=== PATIENT | male | born 1935 | race Caucasian/White ===

== ENCOUNTER → 2020-01-30 | Day surgery (SDC) | payer MEDICARE ==
--- NOTE | 2020-01-26 15:10 | NUR ---
Checked patient's temperature via skin probe: 97.7F. Patient and patient's daughter denies being out of the country or out of the state in the last 14 days. Patient and patient's daughter denies being around anyone who has been out of the country or out of the state in the last 14 days. Patient and patient's daughter denies being around anyone who has been exposed or diagnosed with COVID-19. Patient denies new onset of fever, cough, or shortness of breath in the last 14 days.
[2020-01-26 16:02] LABS: BASOPHILS # (AUTO) 0.1 (0.0-0.1); BASOPHILS % 0.9 % (0.0-1.0); EOSINOPHILS # (AUTO) 0.8 (0.0-0.4); EOSINOPHILS % 9.9 % (0.0-6.0); HEMATOCRIT 41.1 % (38.2-49.6); HEMOGLOBIN 13.9 g/dL (14.0-18.0); LYMPHOCYTES # (AUTO) 2.4 (1.0-3.2); MEAN CORPUSCULAR HEMOGLOBIN 32.6 pg (28-32); MEAN CORPUSCULAR HGB CONC 33.8 g/dL (31-35); MEAN CORPUSCULAR VOLUME 96.3 fL (81-99); MONOCYTES # (AUTO) 0.5 (0.2-0.8); MONOCYTES % 6.2 % (4.4-11.3); NEUTROPHILS # (AUTO) 4.2 (2.1-6.9); NEUTROPHILS % 52.4 % (38.7-80.0); PLATELET COUNT 196 x10e3/uL (140-360); RED BLOOD COUNT 4.27 x10e6/uL (4.3-5.7); RED CELL DISTRIBUTION WIDTH 12.9 % (11.7-14.4)
[2020-01-26 16:12] LABS: INR 0.96; PROTHROMBIN TIME 13.3 seconds (11.9-14.5)
[2020-01-26 16:13] LABS: PARTIAL THROMBOPLASTIN TIME 27.6 seconds (23.8-35.5)
[2020-01-26 16:22] LABS: ALBUMIN/GLOBULIN RATIO 1.4 (0.8-2.0); CALCIUM 9.3 mg/dL (8.4-10.2); CREATININE, SERUM 1.56 mg/dL (0.72-1.25)
--- NOTE | 2020-01-26 16:30 | Diagnostic Imaging Report ---
EXAM: CHEST 2 VIEWS DATE: 01/26/2020 3:30 PM INDICATION: Preoperative evaluation COMPARISON: 03/23/2013 FINDINGS: The trachea is midline. The lungs are symmetrically expanded without evidence for large focal consolidation, pneumothorax, or significant pleural effusion. The cardiomediastinal silhouette and pulmonary vasculature are within normal limits. Partially visualized vascular stent graft noted within the upper abdomen. No acute osseous abnormality is identified. The surrounding soft tissues are unremarkable. IMPRESSION: No acute cardiopulmonary process identified. Signed by: Dr. Rahul Lockhart MD on 01/26/2020 4:26 PM
--- NOTE | 2020-01-27 16:39 | NUR ---
Dr. Sheth notified of creatinine 1.56 and eGFR 43. No new orders at this time.
[2020-01-30] VITALS (10 sets, daily range): BP systolic 133–172; BP diastolic 58–100
[~2020-01-30] VITALS: Ht 179.1 cm; Wt 83.9 kg
[~2020-01-30] MED LIST: ADVAIR 250-501 EACH; ASPIRIN 325 MG TAB ONE; ATORVASTATIN CA20 MG PO; BIVALRIUDIN 250 MG/VIAL VIAL IV ONE; CILOSTAZOL100 MG PO; CLOPIDOGREL BISULFATE 75 MG TAB ONE; COMBIVENT RESPIM4 GM IH; DIGOXIN125 MCG PO; DOXAZOSIN MESYLA8 MG PO; FENOFIBRATE54 MG PO; FENTANYL CITRATE/PF 100MCG/2 ML INJ ONE; GLIMEPIRIDE2 MG PO; HEPARIN SOD (PORCINE) 1000 UNIT/ML 30ML ONE; HEPARIN SOD/SOD CHLORIDE 2,000 ML ONE; HYDROCODONE PO; INDOMETHACIN50 MG PO; IOPAMIDOL 370 MG/ML 200 ML INFUS..BTL INJ ONE; LEVEMIR FL100 UNIT/1 SC; LIDOCAINE HCL 2% LOCAL 20 ML VIAL ONE; MIDAZOLAM HCL 2 MG/2 ML VIAL ONE; MONTELUKAST SOD10 MG PO; NEURONTIN300 MG PO; NEXIUM40 MG PO; NITROGLYCERIN/D5W 200 MCG/ML 250 ML ONE; NOVOLOG100 UNIT/1 SC; SODIUM CHLORIDE 0.9% 1000ML 1,000 ML ONE; SODIUM CHLORIDE 0.9% 50ML 50 ML ONE; VASOTEC10 MG PO; VERAPAMIL ER180 M1 PO; VERAPAMIL HCL 2.5 MG/ML 2 ML VIAL ONE; ZOCOR20 MG PO
--- OUTSIDE RECORDS SUMMARY | 2020-01-30 06:40 | XMS REPORT ---
Author Author [facility] Address Unknown Phone Unavailable Care Team Providers Care Creative Writing Professor Name Role Phone JEREMIAH ARIAS Unavailable Unavailable Problems This patient has no known problems. Allergies, Adverse Reactions, Alerts This patient has no known allergies or adverse reactions. Medications This patient has no known medications. Results Test Description Test Time Test Comments Text Results Atomic Results Result Comments CHEST 2 VIEWS 2020-01-26 16:25:00 [facility] [address] [place] [address] Patient Name: MARY MONTENEGRO MR #: [id number] : 1935 Age/Sex: 84/M Req #: [id number] Adm Physician: Ordered by: JEREMIAH ARIAS MD Report #: [id number] Location: IOS ARCHITECT Room/Bed: Procedure: [id number] DX/CHEST 2 VIEWS Exam Date: 01/26/20 Exam Time: 1552 REPORT STATUS: Signed EXAM: CHEST 2 VIEWS DATE: 01/26/2020 3:30 PM INDICATION: Preoperative evaluation COMPARISON: 03/23/2013 FINDINGS: The trachea is midline. The lungs are symmetrically expanded without evidence for large focal consolidation, pneumothorax, or significant pleural effusion. The cardiomediastinal silhouette and pulmonary vasculature are within normal limits. Partially visualized vascular stent graft noted within the upper abdomen. No acute osseous abnormality is identified. The surrounding soft tissues are unremarkable. IMPRESSION: No acute cardiopulmonary process identified. Signed by: Dr. Rahul Conklin MD on 01/26/2020 4:26 PM Dictated By: RAHUL CONKLIN MD 25 Transcribed By: ALAYNA on 01/26/201625 COPY TO: JEREMIAH ARIAS MD
--- NOTE | 2020-01-30 09:04 | Operative Report ---
DATE OF PROCEDURE: 01/30/2020 SURGEON: Anmol Sheth MD PROCEDURE: 1. Intracoronary stent placement in the right coronary artery. 2. Left heart catheterization. INDICATION: 1. Exertional angina. 2. Coronary artery disease. REVENUE ENFORCEMENT COLLECTION AGENT: Dr. Anmol Sheth. COMPLICATIONS: None. ANESTHESIA: Conscious sedation. TECHNIQUE: The right wrist was draped and prepped in the usual fashion. The right radial artery was anesthetized with lidocaine. Standard Seldinger technique was used to place a 6-Upper Sorbian sheath into the right radial artery without difficulty. A JL3.5 catheter was used to selectively engage the left coronary artery. A 3DRC catheter was used to selectively engage the right coronary artery and a pigtail catheter was used to perform a left ventriculogram. Attention was then turned to the 90% stenosis in the mid right coronary artery. The patient was bolused with an Angiomax and started on an Angiomax drip. The patient was given 600 mg of Plavix. The patient was given 325 mg of aspirin. An Acari Right 1.0 was used to selectively engage the right coronary artery. A ChoICE PT wire was used to cross the area of 90% stenosis. The area was pre- dilated with a 2.5 mm x 12 mm balloon. A 3.0 x 20 mm stent was then deployed at 16 atmospheres for 30 seconds. There was no residual stenosis. There were no complications. Results as follows: 1. There is a normal left main trunk. 2. There is a large left anterior descending artery, which gave rise to a medium-sized diagonal branch. There was some mild disease in the left anterior descending artery and diagonal branch. 3. There was a medium-sized AV circumflex artery, which gave rise to a large bifurcating obtuse marginal branch. There was minimal disease in the circumflex artery. 4. There was a large dominant right coronary artery, which had 90% stenosis in the midportion. 5. 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 CONCLUSION: Successful stent placement in the right coronary artery without complication. Anmol Sheth MD DSH/MODL /[id number] cc: Josh Kim MD MTDD
== END | disposition home or self-care (01) ==
LOC: CATH LAB 06:38
PROVIDERS: ATTEND Internal Medicine Cardiovascular Disease
DX: I25.118 Atherosclerotic heart disease of native coronary artery with other forms of angina pectoris (principal); I48.20 Chronic atrial fibrillation, unspecified; I10 Essential (primary) hypertension; J44.9 Chronic obstructive pulmonary disease, unspecified; E11.9 Type 2 diabetes mellitus without complications; Z01.810 Encounter for preprocedural cardiovascular examination; Z01.812 Encounter for preprocedural laboratory examination; Z01.818 Encounter for other preprocedural examination; Z79.4 Long term (current) use of insulin; Z79.84 Long term (current) use of oral hypoglycemic drugs; Z79.82 Long term (current) use of aspirin
CPT/HCPCS: 93458; C9600; 36415; 71046; 80053; 85025; 85610; 85730; 92928; 93005; 99152; 99153; C1725; C1769; C1874; J0583; J1644; J2001; J2250; J3010; J7030; Q9967

== ENCOUNTER 2020-12-09 14:48 | Inpatient (IN) | payer MEDICARE, OTHER ==
[~2020-12-09] VITALS: Ht 172.7 cm; Wt 86.8 kg
[~2020-12-09 14:48] MED LIST changes: -ASPIRIN 325 MG TAB ONE; -BIVALRIUDIN 250 MG/VIAL VIAL IV ONE; -CLOPIDOGREL BISULFATE 75 MG TAB ONE; -FENTANYL CITRATE/PF 100MCG/2 ML INJ ONE; -HEPARIN SOD (PORCINE) 1000 UNIT/ML 30ML ONE; -HEPARIN SOD/SOD CHLORIDE 2,000 ML ONE; -IOPAMIDOL 370 MG/ML 200 ML INFUS..BTL INJ ONE; -LIDOCAINE HCL 2% LOCAL 20 ML VIAL ONE; -MIDAZOLAM HCL 2 MG/2 ML VIAL ONE; -NITROGLYCERIN/D5W 200 MCG/ML 250 ML ONE; -SODIUM CHLORIDE 0.9% 1000ML 1,000 ML ONE; -SODIUM CHLORIDE 0.9% 50ML 50 ML ONE; -VERAPAMIL HCL 2.5 MG/ML 2 ML VIAL ONE
[2020-12-09] MEDS ORDERED: METHYLPREDNISOLONE SOD SUCC 125 MG/2ML VIAL IV STA (15:03)
[2020-12-09] MEDS ORDERED: ALBUTEROL/IPRATROPIUM 3 ML NEB ONE (15:09)
[2020-12-09] MEDS ORDERED: ALBUTEROL/IPRATROPIUM 3 ML NEB NEB ONE (15:15)
[2020-12-09 15:22] LABS: BASOPHILS # (AUTO) 0.1 (0.0-0.1); BASOPHILS % 0.8 % (0.0-1.0); EOSINOPHILS # (AUTO) 0.4 (0.0-0.4); EOSINOPHILS % 4.1 % (0.0-6.0); HEMATOCRIT 37.4 % (38.2-49.6); HEMOGLOBIN 11.9 g/dL (14.0-18.0); LYMPHOCYTES # (AUTO) 1.9 (1.0-3.2); LYMPHOCYTES % 18.4 % (18.0-39.1); MEAN CORPUSCULAR HEMOGLOBIN 29.8 pg (28-32); MEAN CORPUSCULAR HGB CONC 31.8 g/dL (31-35); MEAN CORPUSCULAR VOLUME 93.5 fL (81-99); MONOCYTES # (AUTO) 0.7 (0.2-0.8); MONOCYTES % 6.6 % (4.4-11.3); NEUTROPHILS % 69.4 % (38.7-80.0); PLATELET COUNT 237 x10e3/uL (140-360); RED CELL DISTRIBUTION WIDTH 13.9 % (11.7-14.4)
[2020-12-09 15:33] LABS: INR 1.02; PARTIAL THROMBOPLASTIN TIME 28.1 seconds (23.8-35.5)
[2020-12-09 15:43] LABS: ALBUMIN 3.8 g/dL (3.5-5.0); ALBUMIN/GLOBULIN RATIO 1.1 (0.8-2.0); ANION GAP 14.3 mmol/L (8-16); CREATININE, SERUM 1.41 mg/dL (0.72-1.25); MAGNESIUM 1.8 MG/DL (1.3-2.1); POTASSIUM 4.3 mmol/L (3.5-5.1)
[2020-12-09 15:50] LABS: CREATINE KINASE MB 2.8 ng/mL (0-5.0)
[2020-12-09] MEDS ORDERED: FUROSEMIDE INJ 10 MG/ML 4 ML VIAL IV ONE (17:00)
[2020-12-09] MEDS ORDERED: ONDANSETRON HCL INJ 2MG/ML 2ML 2 MG/ML VIAL IV PRN (17:00)
[2020-12-09] MEDS ORDERED: DEXTROSE 50% SYRINGE 50 ML IV PRN (17:00)
[2020-12-09] MEDS ORDERED: GLIMEPIRIDE4 MG PO (17:05)
[2020-12-09] MEDS ORDERED: AMLODIPINE BESYL5 MG PO (17:05)
[2020-12-09] MEDS ORDERED: CLOPIDOGREL75 MG PO (17:05)
[2020-12-09] MEDS: CEFTRIAXONE SOD 1 GM in SODIUM CHLORIDE 0.9% 50ML 50 ML IV SCH (17:29)
[2020-12-09] MEDS: AZITHROMYCIN 500MG/NS 250 ML 250 ML IV SCH (17:29)
[2020-12-09] MEDS: INSULIN LISPRO 100 UNIT/1 ML 3ML VIAL SQ SCH ×2 (17:35→21:00)
[2020-12-09 19:00] VITALS: BP 143/88
[2020-12-09] MEDS: ALBUTEROL/IPRATROPIUM 3 ML NEB NEB SCH (19:00)
[2020-12-09 20:00] VITALS: BP 143/88
[2020-12-09] MEDS: METHYLPREDNISOLONE SOD SUCC 125 MG/2ML VIAL IV SCH (22:13)
[2020-12-10] VITALS (8 sets, daily range): BP systolic 120–147; BP diastolic 72–91
[2020-12-10] MEDS: ALBUTEROL/IPRATROPIUM 3 ML NEB NEB SCH ×4 (00:52→20:52)
[2020-12-10 05:20] LABS: BASOPHILS % 0.2 % (0.0-1.0); HEMATOCRIT 34.4 % (38.2-49.6); HEMOGLOBIN 11.3 g/dL (14.0-18.0); LYMPHOCYTES # (AUTO) 0.7 (1.0-3.2); LYMPHOCYTES % 6.3 % (18.0-39.1); MEAN CORPUSCULAR HEMOGLOBIN 31.3 pg (28-32); MEAN CORPUSCULAR HGB CONC 32.8 g/dL (31-35); MEAN CORPUSCULAR VOLUME 95.3 fL (81-99); MONOCYTES # (AUTO) 0.1 (0.2-0.8); MONOCYTES % 0.5 % (4.4-11.3); NEUTROPHILS # (AUTO) 9.6 (2.1-6.9); NEUTROPHILS % 92.2 % (38.7-80.0); PLATELET COUNT 234 x10e3/uL (140-360); RED BLOOD COUNT 3.61 x10e6/uL (4.3-5.7); RED CELL DISTRIBUTION WIDTH 13.8 % (11.7-14.4)
[2020-12-10 05:58] LABS: ALBUMIN 3.5 g/dL (3.5-5.0); ALBUMIN/GLOBULIN RATIO 1.1 (0.8-2.0); ANION GAP 15.7 mmol/L (8-16); CALCIUM 8.9 mg/dL (8.4-10.2); CREATININE, SERUM 1.6 mg/dL (0.72-1.25); POTASSIUM 4.7 mmol/L (3.5-5.1)
[2020-12-10 06:32] LABS: CREATINE KINASE MB 3.2 ng/mL (0-5.0)
[2020-12-10] MEDS: METHYLPREDNISOLONE SOD SUCC 125 MG/2ML VIAL IV SCH (06:39)
[2020-12-10] MEDS ORDERED: ALBUTEROL/IPRATROPIUM 3 ML NEB NEB PRN (09:30)
[2020-12-10] MEDS: INSULIN LISPRO 100 UNIT/1 ML 3ML VIAL SQ SCH ×4 (10:18→21:45)
[2020-12-10] MEDS: PANTOPRAZOLE SOD 40 MG TABEC PO SCH (10:23)
[2020-12-10] MEDS: CLOPIDOGREL BISULFATE 75 MG TAB PO SCH (10:23)
[2020-12-10] MEDS: DIGOXIN 0.125 MG TAB PO SCH (10:23)
[2020-12-10] MEDS: DOXAZOSIN MESYLATE 2 MG TAB PO SCH (12:29)
[2020-12-10 13:07] LABS: CREATINE KINASE MB 4.3 ng/mL (0-5.0)
[2020-12-10] MEDS ORDERED: METHYLPREDNISOLONE SOD SUCC 125 MG/2ML VIAL IV SCH (14:00)
[2020-12-10] MEDS: METHYLPREDNISOLONE SOD SUCC 40 MG/ML VIAL 1ML IV SCH ×2 (15:00→22:15)
[2020-12-10] MEDS: CEFTRIAXONE SOD 1 GM in SODIUM CHLORIDE 0.9% 50ML 50 ML IV SCH (15:01)
[2020-12-10] MEDS ORDERED: CEFTRIAXONE SOD 1 GM VIAL ONE (15:08)
[2020-12-10] MEDS ORDERED: SODIUM CHLORIDE 0.9% 50ML 50 ML ONE (15:09)
[2020-12-10] MEDS ORDERED: SODIUM CHLORIDE 0.9% 250ML 250 ML ONE (15:20)
[2020-12-10] MEDS: CILOSTAZOL 100 MG TAB PO SCH (17:09)
[2020-12-10] MEDS: AZITHROMYCIN 500MG/NS 250 ML 250 ML IV SCH (17:09)
[2020-12-10] MEDS: ENOXAPARIN SOD INJ 40 MG/0.4 ML SYR SC SCH (17:09)
[2020-12-10] MEDS: ATORVASTATIN 20 MG TAB PO SCH (21:45)
[2020-12-10] MEDS: INSULIN GLARGINE 100 UNITS/ML VIAL SQ SCH (21:45)
[2020-12-11] VITALS (7 sets, daily range): BP systolic 111–123; BP diastolic 61–93
[2020-12-11] MEDS: ALBUTEROL/IPRATROPIUM 3 ML NEB NEB SCH ×4 (01:00→19:20)
[2020-12-11] MEDS: METHYLPREDNISOLONE SOD SUCC 40 MG/ML VIAL 1ML IV SCH ×3 (05:57→22:00)
[2020-12-11] MEDS: DOXAZOSIN MESYLATE 2 MG TAB PO SCH (08:36)
[2020-12-11] MEDS: PANTOPRAZOLE SOD 40 MG TABEC PO SCH (08:36)
[2020-12-11] MEDS: DIGOXIN 0.125 MG TAB PO SCH (08:36)
[2020-12-11] MEDS: CILOSTAZOL 100 MG TAB PO SCH ×2 (08:37→16:57)
[2020-12-11] MEDS: INSULIN LISPRO 100 UNIT/1 ML 3ML VIAL SQ SCH ×4 (08:37→21:09)
[2020-12-11] MEDS: CLOPIDOGREL BISULFATE 75 MG TAB PO SCH (08:37)
[2020-12-11] MEDS ORDERED: AMLODIPINE BESYLATE 5 MG TAB PO SCH (09:00)
[2020-12-11] MEDS ORDERED: ONDANSETRON HCL 4 MG ORAL DISINTEGRATING TAB PO PRN (11:15)
[2020-12-11] MEDS: METOPROLOL TARTRATE 25 MG TAB PO SCH ×2 (12:05→16:57)
[2020-12-11] MEDS ORDERED: FUROSEMIDE INJ 10 MG/ML 4 ML VIAL IV ONE (12:45)
[2020-12-11] MEDS: CEFTRIAXONE SOD 1 GM in SODIUM CHLORIDE 0.9% 50ML 50 ML IV SCH (16:56)
[2020-12-11] MEDS: AZITHROMYCIN 500MG/NS 250 ML 250 ML IV SCH (16:57)
[2020-12-11] MEDS: ENOXAPARIN SOD INJ 40 MG/0.4 ML SYR SC SCH (16:57)
[2020-12-11] MEDS ORDERED: CEFTRIAXONE SOD 1 GM VIAL ONE (17:02)
[2020-12-11] MEDS ORDERED: SODIUM CHLORIDE 0.9% 50ML 50 ML ONE (17:03)
[2020-12-11] MEDS: ATORVASTATIN 20 MG TAB PO SCH (21:00)
[2020-12-11] MEDS: INSULIN GLARGINE 100 UNITS/ML VIAL SQ SCH (21:09)
[2020-12-12] VITALS (9 sets, daily range): BP systolic 107–113; BP diastolic 53–87
[2020-12-12] MEDS: ALBUTEROL/IPRATROPIUM 3 ML NEB NEB SCH ×4 (01:00→21:37)
[2020-12-12 05:49] LABS: BASOPHILS % 0.2 % (0.0-1.0); HEMATOCRIT 32.9 % (38.2-49.6); HEMOGLOBIN 10.5 g/dL (14.0-18.0); LYMPHOCYTES # (AUTO) 0.7 (1.0-3.2); MEAN CORPUSCULAR HGB CONC 31.9 g/dL (31-35); MONOCYTES # (AUTO) 0.5 (0.2-0.8); MONOCYTES % 3.5 % (4.4-11.3); NEUTROPHILS # (AUTO) 12.2 (2.1-6.9); NEUTROPHILS % 90.3 % (38.7-80.0); PLATELET COUNT 179 x10e3/uL (140-360); RED CELL DISTRIBUTION WIDTH 13.8 % (11.7-14.4)
[2020-12-12] MEDS: METHYLPREDNISOLONE SOD SUCC 40 MG/ML VIAL 1ML IV SCH ×3 (05:53→22:00)
[2020-12-12 06:36] LABS: ANION GAP 12.9 mmol/L (8-16); CALCIUM 8.8 mg/dL (8.4-10.2); CREATININE, SERUM 1.68 mg/dL (0.72-1.25); POTASSIUM 4.9 mmol/L (3.5-5.1)
[2020-12-12] MEDS: INSULIN LISPRO 100 UNIT/1 ML 3ML VIAL SQ SCH ×4 (07:30→21:00)
[2020-12-12] MEDS: FUROSEMIDE 20 MG TAB PO SCH (08:59)
[2020-12-12] MEDS: DIGOXIN 0.125 MG TAB PO SCH (08:59)
[2020-12-12] MEDS: CLOPIDOGREL BISULFATE 75 MG TAB PO SCH (08:59)
[2020-12-12] MEDS: METOPROLOL TARTRATE 25 MG TAB PO SCH ×2 (08:59→16:53)
[2020-12-12] MEDS: CILOSTAZOL 100 MG TAB PO SCH ×2 (08:59→16:53)
[2020-12-12] MEDS: PANTOPRAZOLE SOD 40 MG TABEC PO SCH (09:00)
[2020-12-12] MEDS: DOXAZOSIN MESYLATE 2 MG TAB PO SCH (09:00)
[2020-12-12 09:09] LABS: LYMPHOCYTES % (MANUAL) 8 % (19-48); MONOCYTES % (MANUAL) 1 % (3.4-9.0); NEUTROPHILS % (MANUAL) 91 % (40-74); PLATELET ESTIMATE ADEQUATE; PLATELET MORPHOLOGY COMMENT NORMAL; RBC MORPHOLOGY COMMENT NORMAL
[2020-12-12] MEDS: DOXYCYCLINE HYCLATE TABLET 100 MG TAB PO SCH ×2 (09:53→21:00)
[2020-12-12] MEDS ORDERED: CEFTRIAXONE SOD 1 GM VIAL ONE (15:05)
[2020-12-12] MEDS ORDERED: SODIUM CHLORIDE 0.9% 50ML 50 ML ONE (15:06)
[2020-12-12] MEDS: CEFTRIAXONE SOD 1 GM in SODIUM CHLORIDE 0.9% 50ML 50 ML IV SCH (15:30)
[2020-12-12] MEDS: ENOXAPARIN SOD INJ 40 MG/0.4 ML SYR SC SCH (16:53)
[2020-12-12] MEDS: INSULIN GLARGINE 100 UNITS/ML VIAL SQ SCH (21:00)
[2020-12-12] MEDS: ATORVASTATIN 20 MG TAB PO SCH (21:00)
[2020-12-13] VITALS: BP 111/73
[2020-12-13 04:00] VITALS: BP 120/84
[2020-12-13] MEDS: METHYLPREDNISOLONE SOD SUCC 40 MG/ML VIAL 1ML IV SCH (05:36)
[2020-12-13 05:56] LABS: BASOPHILS % 0.3 % (0.0-1.0); HEMATOCRIT 35.3 % (38.2-49.6); HEMOGLOBIN 11.3 g/dL (14.0-18.0); LYMPHOCYTES # (AUTO) 0.8 (1.0-3.2); LYMPHOCYTES % 7.1 % (18.0-39.1); MEAN CORPUSCULAR VOLUME 93.6 fL (81-99); MONOCYTES # (AUTO) 0.5 (0.2-0.8); MONOCYTES % 4.9 % (4.4-11.3); NEUTROPHILS # (AUTO) 9.4 (2.1-6.9); NEUTROPHILS % 86.3 % (38.7-80.0); PLATELET COUNT 190 x10e3/uL (140-360); RED BLOOD COUNT 3.77 x10e6/uL (4.3-5.7); RED CELL DISTRIBUTION WIDTH 13.8 % (11.7-14.4)
[2020-12-13 06:21] LABS: ANION GAP 14.6 mmol/L (8-16); CALCIUM 9.1 mg/dL (8.4-10.2); CREATININE, SERUM 1.55 mg/dL (0.72-1.25); POTASSIUM 4.6 mmol/L (3.5-5.1)
[2020-12-13] MEDS: ALBUTEROL/IPRATROPIUM 3 ML NEB NEB SCH (07:00)
[2020-12-13 07:26] VITALS: BP 138/80
[2020-12-13] MEDS: INSULIN LISPRO 100 UNIT/1 ML 3ML VIAL SQ SCH (07:30)
[2020-12-13 07:34] VITALS: BP 138/80
[2020-12-13] MEDS: PANTOPRAZOLE SOD 40 MG TABEC PO SCH (08:10)
[2020-12-13] MEDS: DIGOXIN 0.125 MG TAB PO SCH (08:10)
[2020-12-13] MEDS: DOXYCYCLINE HYCLATE TABLET 100 MG TAB PO SCH (08:10)
[2020-12-13] MEDS: DOXAZOSIN MESYLATE 2 MG TAB PO SCH (08:10)
[2020-12-13] MEDS: CLOPIDOGREL BISULFATE 75 MG TAB PO SCH (08:10)
[2020-12-13] MEDS: METOPROLOL TARTRATE 25 MG TAB PO SCH (08:10)
[2020-12-13] MEDS: CILOSTAZOL 100 MG TAB PO SCH (08:10)
[2020-12-13] MEDS: FUROSEMIDE 20 MG TAB PO SCH (08:10)
[2020-12-13 11:33] VITALS: BP 120/80
== END 2020-12-13 12:01 | disposition home or self-care (01) | DRG 291 ==
LOC: ER 14:56 → ERHOLD 15:06 → MED/SURG3 17:54 → OBSVTOIN 12-10 09:24
PROVIDERS: ADMIT Internal Medicine; ATTEND Internal Medicine
DX: I50.23 Acute on chronic systolic (congestive) heart failure (principal); J18.9 Pneumonia, unspecified organism; J96.01 Acute respiratory failure with hypoxia; J44.0 Chronic obstructive pulmonary disease with (acute) lower respiratory infection; J44.1 Chronic obstructive pulmonary disease with (acute) exacerbation; I25.10 Atherosclerotic heart disease of native coronary artery without angina pectoris; K21.9 Gastro-esophageal reflux disease without esophagitis; E78.5 Hyperlipidemia, unspecified; Z99.81 Dependence on supplemental oxygen; Z95.5 Presence of coronary angioplasty implant and graft; F17.210 Nicotine dependence, cigarettes, uncomplicated; Z20.822 Contact with and (suspected) exposure to COVID-19; N18.9 Chronic kidney disease, unspecified; Z91.038 Other insect allergy status
CPT/HCPCS: 36415; 71045; 71046; 71250; 80048; 80053; 80061; 82550; 82553; 82948; 83735; 83880; 84484; 85025; 85610; 85730; 87040; 93005; 93306; 94640; 97139; 99284; G0378; J0456; J0696; J1650; J1815; J1940; J2920; J2930; J7050; U0002